=== PATIENT | female | born 1980 | race Caucasian/White ===

== ENCOUNTER 2020-04-21 16:23 | Outpatient (CLI) | payer OTHER, SELFPAY ==
[2020-04-21 16:46] LABS: Basophils Percent Auto 0.5 % (0.2-1.2); Eosinophils Percent Auto 0.5 % (0-4.4); Hematocrit 40.9 % (37.0-47.0); Hemoglobin 13.8 g/dL (12.0-15.0); Immature Granulocyte Absolute 0.01 K/mm3 (0.00-0.031); Immature Granulocyte Percent A 0.2 % (0-0.5); Lymphocytes Absolute Auto 1.59 K/mm3 (0.9-3.2); Lymphocytes Percent Auto 26.2 % (18.3-44.2); Mean Corpuscular HGB Conc 33.7 g/dl (32-36); Mean Corpuscular Hemoglobin 31.8 pg (26-34); Mean Corpuscular Volume 94.2 fl (80-100); Monocytes Absolute Auto 0.5 K/mm3 (0.1-0.6); Monocytes Percent Auto 7.9 % (2.6-8.5); Neutrophils Absolute Auto 3.9 K/mm3 (1.3-6.7); Neutrophils Percent Auto 64.7 % (45.5-73.1); Platelet Count Result 212 k/mm3 (150-375); Red Blood Count 4.34 M/mm3 (4.2-5.4); Red Cell Distribution Width 12.3 % (11.5-14.5); White Blood Count 6.1 K/mm3 (4.5-10.0)
[2020-04-21 17:01] LABS: Alanine Aminotransferase 42 U/L (4-35); Albumin Level 4.8 g/dL (3.5-5.1); Alkaline Phosphatase 49 U/L (38-126); Anion Gap 9 mmol/L (8-16); Aspartate Amino Transferase 59 U/L (14-36); Bilirubin,Total 1.2 mg/dL (0.2-1.3); Blood Urea Nitrogen 14 mg/dL (7-17); CRP 0.5 mg/dL (<1.0); Calcium 9.9 mg/dL (8.4-10.2); Carbon Dioxide 26 mmol/L (22-30); Chloride 101 mmol/L (98-107); Estimated Glomerular Filt Rate > 60; Glucose 99 mg/dL (65-105); Potassium 4.5 mmol/L (3.4-5.0); Sodium 136 mmol/L (137-145)
[2020-04-21 17:02] LABS: Rheumatoid Factor < 8.6 IU/ML (<12)
[2020-04-21 17:10] LABS: Erythrocyte Sedimentation Rate 21 mm/hr (0-20)
[2020-04-27 10:40] LABS: Anti Cyclic Citrullinated Pept <16 Units (<20)
[2020-04-27 12:47] LABS: Anti Nuclear Antibody Titer 1:40 (Negative)
== END 2020-04-21 16:24 | disposition home or self-care (01) ==
LOC: ANHLAB 16:24
PROVIDERS: PCP Nurse Practitioner Family; Visit Provider Orthopaedic Surgery
DX: M06.9 Rheumatoid arthritis, unspecified (principal)
CPT/HCPCS: 36415; 80053; 85025; 85652; 86038; 86039; 86140; 86200; 86430

== ENCOUNTER → 2020-05-11 15:50 | Outpatient (CLI) | payer OTHER, SELFPAY ==
--- NOTE | ~2020-05-11 | MR_ITS ---
EXAMINATION: MR cervical spine wo con DATE: 05/11/2020 16:48 INDICATION: Neck pain. TECHNIQUE: Magnetic resonance imaging (MRI) of the cervical spine was performed without intravenous c ontrast. Sequences included sagittal T2-weighted FSE, sagittal STIR FSE, sagittal T1-weighted FSE, ax ial MERGE, and axial T2-weighted FSE. COMPARISON: Cervical spine MRI 04/15/2018 FINDINGS: There is hypolordosis of cervical spine. Vertebral body heights are normal. There is mildly decreased disc height at C5-C6. The spinal cord signal intensity is normal. The following disc level s are specifically discussed: C2-C3: The disc does not extend beyond the endplate margin. There is mild left uncovertebral joint os teoarthritis. There is mild bilateral facet joint osteoarthritis. There is no neural foraminal stenos is. There is no central canal stenosis. C3-C4: The disc is mildly bulging. There is mild bilateral uncovertebral joint osteoarthritis. There is mild bilateral facet joint osteoarthritis. There is no neural foraminal stenosis. There is no cent ral canal stenosis. C4-C5: The disc is mildly bulging. There is mild left uncovertebral joint osteoarthritis. There is mo derate bilateral facet joint osteoarthritis. There is no neural foraminal stenosis. There is no centr al canal stenosis. C5-C6: There is a right central extrusion. There is no uncovertebral joint osteoarthritis. There is m ild left facet joint osteoarthritis. There is no neural foraminal stenosis. There is mild central can al stenosis with ventral indentation of the spinal cord. C6-C7: There is a left central protrusion. There is mild left uncovertebral joint osteoarthritis. The re is no facet joint osteoarthritis. There is no neural foraminal stenosis. There is mild central can al stenosis. C7-T1: The disc does not extend beyond the endplate margin. There is no uncovertebral joint osteoarth ritis. There is mild bilateral facet joint osteoarthritis. There is no neural foraminal stenosis. The re is no central canal stenosis. IMPRESSION: 1. Mild cervical spondylosis, worsened from 04/11/2018. Reviewed, dictated and finalized at location B. [employer]
== END ==
PROVIDERS: PCP Nurse Practitioner Family; Visit Provider Orthopaedic Surgery
DX: M47.812 Spondylosis without myelopathy or radiculopathy, cervical region (principal)
CPT/HCPCS: 72141

== ENCOUNTER → 2020-08-25 16:44 | Outpatient (CLI) | payer OTHER, SELFPAY ==
--- NOTE | ~2020-08-25 | XR_ITS ---
EXAMINATION: XR thoracic spine 3V DATE: 08/25/2020 18:02 INDICATION: Thoracic back pain. TECHNIQUE: 3 views of thoracic spine were obtained. COMPARISON: Thoracic spine radiographs 01/01/2019 FINDINGS: There is 4 degrees levocurvature of thoracic spine. Vertebral body heights are normal. Ther e are endplate osteophytes at multiple levels. IMPRESSION: 1. Mild thoracic spondylosis. Reviewed, dictated and finalized at location A.
== END ==
PROVIDERS: PCP Nurse Practitioner Family; Visit Provider Nurse Practitioner Adult Health
DX: M47.814 Spondylosis without myelopathy or radiculopathy, thoracic region (principal)
CPT/HCPCS: 72072

== ENCOUNTER → 2020-09-08 16:39 | Outpatient (CLI) | payer OTHER, SELFPAY ==
--- NOTE | ~2020-09-08 | MR_ITS ---
EXAMINATION: MR thoracic spine wo con EXAM DATE: 09/08/2020 17:31 INDICATION: Thoracic back pain, right scapular pain. TECHNIQUE: Multi-sequential, multiplanar MR images of the thoracic spine were obtained without contra st. Sagittal T1, T2, T2 fat saturation, axial T2 weighted images reviewed. Correlation is made to th oracic x-ray 08/25/2020. FINDINGS: The spinal cord signal intensity and intrinsic morphology is normal. The vertebral bodies a re aligned in the AP dimension. Vertebral body and disc heights are well-maintained. There is mild th oracic facet arthropathy causing mild right neural foraminal stenosis T7-8 and T8-9. The other thorac ic neural foramen are widely patent as is the central canal. There are no suspicious marrow signal ab normalities. Paraspinal soft tissue is unremarkable. IMPRESSION: Mild thoracic facet arthropathy. Reviewed, dictated and finalized at location A.
== END ==
PROVIDERS: PCP Surgery; Visit Provider Nurse Practitioner Adult Health
DX: M54.6 Pain in thoracic spine (principal); M48.04 Spinal stenosis, thoracic region
CPT/HCPCS: 72146